=== PATIENT | female | born 1960 | race Native Hawaiian/Other Pacific Islander ===

== ENCOUNTER 2018-10-06 13:15 | Inpatient (IN) | payer OTHER ==
[2018-10-06] MEDS ORDERED: SODIUM CHLORIDE 0.9% 1,000 ML IV STA (13:45)
[2018-10-06 14:02] LABS: Amorphous Sediment,Urine Occasional /hpf; Appearance,Urine Cloudy (Clear); Bacteria,Urine Occasional /hpf; Bilirubin,Urine 3+ (Negative); Blood,Urine Trace (Negative); Color,Urine Dark Yellow; Glucose,Urine (UA) Negative (Negative); Granular Casts,Urine 2 /lpf (0); Ketones,Urine Negative (Negative); Leukocyte Esterase,Urine Large (Negative); Mucus,Urine Occasional /hpf; Nitrite,Urine Negative (Negative); PH, Urine 5.5 (5.0-8.0); Protein,Urine Negative (Negative); RBC,Urine 1 /hpf (0-5); Specific Gravity,Urine 1.009 (1.001-1.035); Squamous Epithelial Cell,Urine 3 /hpf (0-4); Urobilinogen,Urine <2.0 mg/dL (<2.0)
[2018-10-06 14:09] LABS: Basophils # (A) 0.1 k/uL (0-0.2); Basophils % (A) 1 %; Eosinophils # (A) 0.1 k/uL (0-0.7); Eosinophils % (A) 1 %; HCT 47.3 % (34.0-46.0); HGB 15.3 gm/dL (11.4-16.0); Lymphocytes % (A) 22 %; MCH 29.4 pg (25.0-35.0); MCHC 32.3 g/dL (31.0-37.0); MCV 90.9 fL (80.0-100.0); Mean Platelet Volume 10.4; Monocytes # (A) 0.7 k/uL (0-1.0); Monocytes % (A) 8 %; Neutrophils # (A) 5.8 k/uL (1.3-7.7); Neutrophils % (A) 65 %; Platelet Count 275 k/uL (150-450); RDW 15.8 % (11.5-15.5)
[2018-10-06 14:22] LABS: Target Cells Present
[2018-10-06 14:23] LABS: Poikilocytosis (M) Present
--- NOTE | 2018-10-06 15:16 | CT ---
EXAMINATION TYPE: CT abdomen pelvis w con DATE OF EXAM: 10/06/2018 COMPARISON: None INDICATION: No complaints of pain. Yellowing of eyes and skin DLP: 1360.6 mGycm, Automated exposure control for dose reduction was used. CONTRAST: 100 mL of Isovue 370. Study performed without Oral Contrast TECHNIQUE: Axial images were obtained from above the diaphragm to the pubic rami in the axial plane a t 5 mm thick sections. Reconstructed images are reviewed on the computer in the coronal plane. FINDINGS: Limited CT sections are obtained the lung bases. The lung bases are clear. CT ABDOMEN: Liver: Normal Spleen: Normal Pancreas: Normal Adrenal glands: The adrenal glands are normal. Gallbladder: Some thickening of the urinary gallbladder wall may be present. Clinical correlation is recommended. This may be partially intrahepatic. Consider follow-up with ultrasound to evaluate for c holecystitis. Kidneys: No masses are evident. No hydronephrosis is present. No cysts are present. Delayed images were obtained through the kidneys, which remain unremarkable. Aorta: Vascular calcification is within the aorta. Inferior vena cava: Normal. CT PELVIS: Loops of bowel within the abdomen and pelvis are normal. No oral contrast was utilized. Note is m julianne of an anterior abdominal wall hernia in the periumbilical region with an opening of 0.8 cm. Appendix: Normal as visualized. Urinary bladder: Decompressed with some limited evaluation. Genitourinary structures: Uterus contains an IUD. Adnexal regions are unremarkable. Uterine fibroid e xtending from the anterior fundus should be suspected. Osseous structures: No suspicious lytic or sclerotic lesions. L4-L5 facet changes are present. IMPRESSIONS: 1. Uterine fibroid. 2. Some gallbladder wall thickening and some suspicion of a partially intrahepatic gallbladder. Corre late for acute cholecystitis. Additional evaluation with ultrasound is recommended. 3 small anterior abdominal wall hernia containing mesenteric fat.
[2018-10-06 15:22] LABS: ALT 68 U/L (9-52); AST 83 U/L (14-36); Albumin 3.6 g/dL (3.5-5.0); Alkaline Phosphatase 379 U/L (38-126); Anion Gap 11 mmol/L; Blood Urea Nitrogen 13 mg/dL (7-17); Calcium 9.1 mg/dL (8.4-10.2); Carbon Dioxide 22 mmol/L (22-30); Chloride 104 mmol/L (98-107); Glucose 113 mg/dL (74-99); Magnesium 2.3 mg/dL (1.6-2.3); Potassium 4.5 mmol/L (3.5-5.1); Sodium 137 mmol/L (137-145); Total Protein 7.5 g/dL (6.3-8.2)
[2018-10-06 15:23] LABS: Total Bilirubin 18.6 mg/dL (0.2-1.3)
--- NOTE | 2018-10-06 16:14 | ED ---
General Adult HPI - General Chief complaint: Recheck/Abnormal Lab/Rx Stated complaint: Needs testing on eyes Time Seen by Provider: 10/06/18 13:27 Source: patient, RN notes reviewed, old records reviewed Mode of arrival: ambulatory Limitations: no limitations - History of Present Illness Initial comments: 57-year-old female patient past medical history of hypertension presents to ED with progressive jaundice since Tuesday. Patient reports that she was seen by her primary care provider 2 days ago who recommended present to ER for further evaluation. Patient is not having any other symptoms besides jaundice. Patient denies any pain, headache, nausea vomiting diarrhea. Patient denies any abdominal pain. Patient is currently being treated by her primary care physician with Bactrim for urinary tract infection. Patient denies any current dysuria. Systemic: Pt denies fatigue, myalgia, fever/chills, rash. Pt denies weakness, night sweats, weight loss. Neuro: Pt denies headache, visual disturbances, syncope or pre-syncope. HEENT: Pt denies ocular discharge or irritation, otalgia, rhinorrhea, pharyngitis or notable lymphadenopathy. Cardiopulmonary: Pt denies chest pain, SOB, heart palpitations, dyspnea on exertion. Abdominal/GI: Pt denies abdominal pain, n/v/d. : Pt denies dysuria, burning w/ urination, frequency/urgency. Denies new onset urinary or bowel incontinence. MSK: Pt denies myalgia, loss of strength or function in extremities. Neuro: Pt denies new onset weakness, paresthesias. - Related Data Home Medications Medication Instructions Recorded Confirmed Atenolol 25 mg PO DAILY 10/06/18 10/06/18 Sulfamethox-Tmp 800-160Mg [Bactrim 1 tab PO DAILY 10/06/18 10/06/18 DS 800-160 mg] Allergies Allergy/AdvReac Type Severity Reaction Status Date / Time No Known Allergies Allergy Verified 10/06/18 14:29 Review of Systems ROS Statement: Those systems with pertinent positive or pertinent negative responses have been documented in the HPI. ROS Other: All systems not noted in ROS Statement are negative. Past Medical History Past Medical History: Hypertension History of Any Multi-Drug Resistant Organisms: None Reported Past Surgical History: No Surgical Hx Reported Past Psychological History: Anxiety Smoking Status: Never smoker Past Alcohol Use History: None Reported Past Drug Use History: None Reported General Exam - General Exam Comments Initial Comments: Constitutional: NAD, AOX3, Pt has pleasant affect. HEENT: NC/AT, trachea midline, neck supple, no lymphadenopathy. Posterior phar ynx non erythematous, without exudates. External ears appear normal, without discharge. Mucous membranes moist. Eyes PERRLA, EOM intact. There is icterus. No pallor noted. Cardiopulmonary: RRR, no murmurs, rubs or gallops, no JVD noted. Lungs CTAB in anterior and posterior rose. No peripheral edema. Abdominal exam: Abdomen soft and non-distended. Abdomen non-tender to palpation in all 4 quadrants. Westbrook sign negative. Bowel sounds active in LLQ. No hepatosplenomegaly. No ecchymosis Neuro: CN II-XII grossly intact. No nuchal rigidity. MSK: No posterior calf tenderness bilaterally, homans sign negative bilaterally. Posterior tibialis and radial pulse +2 bilaterally. Sensation intact in upper and lower extremities. Full active ROM in upper and lower extremities, 5/5 stregnth. Derm: Diffuse jaundice noted. Limitations: no limitations Course Vital Signs 10/06/18 13:24 Temperature 97.7 F Pulse Rate 101 H Respiratory 20 Rate Blood Pressure 163/94 O2 Sat by Pulse 99 Oximetry Medical Decision Making - Medical Decision Making 57-year-old female patient past medical history of hypertension presents to ED with progressive jaundice since Tuesday. Patient reports that she was seen by her primary care provider 2 days ago who recommended present to ER for further evaluation. Patient is not having any other symptoms besides jaundice. Patient denies any pain, headache, nausea vomiting diarrhea. Patient denies any abdominal pain. Patient is currently being treated by her primary care physician with Bactrim for urinary tract infection. Patient denies any current dysuria. Patient will signs stable, afebrile. Physical exam displayed scleral pallor, jaundice. Abdomen nontender. Large investigations revealed nonpresent CBC. CMP revealed bilirubin of 18.6. UA revealed UTI. Patient is currently being treated with Bactrim for urinary tract infection. CT abdomen and pelvis displayed uterine fibroid. Some gallbladder wall thickening, some suspicion for partial intrahepatic gallbladder. Ultrasound displayed cholelithiasis with nonspecific gallbladder wall thickening. Repeat Exam patient nontender right upper quadrant. Patient to be admitted to Dr. Toney with GI and surgery consult. Acute hepatitis panel pending, bilirubin differentials pending. Case discussed with Dr. Easton. Antibiotics added for coverage of possible cholangitis. GI and surgery consulted. Case discussed with Dr. Toney by Dr. Easton. - Lab Data Result diagrams: 10/06/18 13:40 10/06/18 14:55 Lab Results 10/06/18 10/06/18 10/06/18 Range/Units 13:40 13:40 13:40 WBC 9.0 (3.8-10.6) k/uL RBC 5.20 (3.80-5.40) m/uL Hgb 15.3 (11.4-16.0) gm/dL Hct 47.3 H (34.0-46.0) % MCV 90.9 (80.0-100.0) fL MCH 29.4 (25.0-35.0) pg MCHC 32.3 (31.0-37.0) g/dL RDW 15.8 H (11.5-15.5) % Plt Count 275 (150-450) k/uL Neutrophils % 65 % Lymphocytes % 22 % Monocytes % 8 % Eosinophils % 1 % Basophils % 1 % Neutrophils # 5.8 (1.3-7.7) k/uL Lymphocytes # 2.0 (1.0-4.8) k/uL Monocytes # 0.7 (0-1.0) k/uL Eosinophils # 0.1 (0-0.7) k/uL Basophils # 0.1 (0-0.2) k/uL Manual Slide Review Performed Poikilocytosis (manual Present Target Cells Present Sodium (137-145) mmol/L Potassium (3.5-5.1) mmol/L Chloride (98-107) mmol/L Carbon Dioxide (22-30) mmol/L Anion Gap mmol/L BUN (7-17) mg/dL Creatinine (0.52-1.04) mg/dL Est GFR (CKD-EPI)AfAm (>60 ml/min/1.73 sqM) Est GFR (CKD-EPI)NonAf (>60 ml/min/1.73 sqM) Glucose (74-99) mg/dL Plasma Lactic Acid Jignesh 1.4 (0.7-2.0) mmol/L Calcium (8.4-10.2) mg/dL Magnesium (1.6-2.3) mg/dL Total Bilirubin (0.2-1.3) mg/dL AST (14-36) U/L ALT (9-52) U/L Alkaline Phosphatase (38-126) U/L Total Protein (6.3-8.2) g/dL Albumin (3.5-5.0) g/dL Urine Color Dark Yellow Urine Appearance Cloudy H (Clear) Urine pH 5.5 (5.0-8.0) Ur Specific [place] 1.009 (1.001-1.035) Urine Protein Negative (Negative) Urine Glucose (UA) Negative (Negative) Urine Ketones Negative (Negative) Urine Blood Trace H (Negative) Urine Nitrite Negative (Negative) Urine Bilirubin 3+ H (Negative) Urine Urobilinogen <2.0 (<2.0) mg/dL Ur Leukocyte Esterase Large H (Negative) Urine RBC 1 (0-5) /hpf Urine WBC 53 H (0-5) /hpf Urine WBC Clumps Few H (None) /hpf Ur Squamous Epith Cells 3 (0-4) /hpf Amorphous Sediment Occasional H (None) /hpf Urine Bacteria Occasional H (None) /hpf Granular Casts 2 (0) /lpf Urine Mucus Occasional H (None) /hpf 10/06/18 Range/Units 14:55 WBC (3.8-10.6) k/uL RBC (3.80-5.40) m/uL Hgb (11.4-16.0) gm/dL Hct (34.0-46.0) % MCV (80.0-100.0) fL MCH (25.0-35.0) pg MCHC (31.0-37.0) g/dL RDW (11.5-15.5) % Plt Count (150-450) k/uL Neutrophils % % Lymphocytes % % Monocytes % % Eosinophils % % Basophils % % Neutrophils # (1.3-7.7) k/uL Lymphocytes # (1.0-4.8) k/uL Monocytes # (0-1.0) k/uL Eosinophils # (0-0.7) k/uL Basophils # (0-0.2) k/uL Manual Slide Review Poikilocytosis (manual Target Cells Sodium 137 (137-145) mmol/L Potassium 4.5 (3.5-5.1) mmol/L Chloride 104 (98-107) mmol/L Carbon Dioxide 22 (22-30) mmol/L Anion Gap 11 mmol/L BUN 13 (7-17) mg/dL Creatinine 0.78 (0.52-1.04) mg/dL Est GFR (CKD-EPI)AfAm >90 (>60 ml/min/1.73 sqM) Est GFR (CKD-EPI)NonAf 85 (>60 ml/min/1.73 sqM) Glucose 113 H (74-99) mg/dL Plasma Lactic Acid Jignesh (0.7-2.0) mmol/L Calcium 9.1 (8.4-10.2) mg/dL Magnesium 2.3 (1.6-2.3) mg/dL Total Bilirubin 18.6 H* (0.2-1.3) mg/dL AST 83 H (14-36) U/L ALT 68 H (9-52) U/L Alkaline Phosphatase 379 H (38-126) U/L Total Protein 7.5 (6.3-8.2) g/dL Albumin 3.6 (3.5-5.0) g/dL Urine Color Urine Appearance (Clear) Urine pH (5.0-8.0) Ur Specific [place] (1.001-1.035) Urine Protein (Negative) Urine Glucose (UA) (Negative) Urine Ketones (Negative) Urine Blood (Negative) Urine Nitrite (Negative) Urine Bilirubin (Negative) Urine Urobilinogen (<2.0) mg/dL Ur Leukocyte Esterase (Negative) Urine RBC (0-5) /hpf Urine WBC (0-5) /hpf Urine WBC Clumps (None) /hpf Ur Squamous Epith Cells (0-4) /hpf Amorphous Sediment (None) /hpf Urine Bacteria (None) /hpf Granular Casts (0) /lpf Urine Mucus (None) /hpf Disposition Clinical Impression: Hyperbilirubinemia Disposition: ADMITTED IP TO THIS HOSP Condition: Serious Is patient prescribed a controlled substance at d/c from ED?: No
--- NOTE | 2018-10-06 16:54 | US ---
EXAMINATION TYPE: US gallbladder DATE OF EXAM: 10/06/2018 COMPARISON: CT 10/06/2018 CLINICAL HISTORY: Pain. Abdominal pain per order. *Limited study due to gas. Patient not NPO. EXAM MEASUREMENTS: Liver Length: 12.7 cm Gallbladder Wall: 0.5 cm CBD: 0.5 cm Right Kidney: 11.5 x 5.7 x 4.9 cm Pancreas: Tail obscured by gas. Liver: Heterogeneously echogenic, but no focal findings. Gallbladder: Gallbladder is nondistended. Multiple shadowing mobile echogenic areas seen within the g allbladder. There was difficulty in visualizing the wall of the gallbladder, but what could be seen a ppeared to be thickened at 5 mm, with top normal being 3 mm thickness. There was no sonographic Nacho y's sign. CBD: wnl . Right Kidney: No hydronephrosis or mass. IMPRESSION: CHOLELITHIASIS, WITH NONSPECIFIC GALLBLADDER WALL THICKENING.
[2018-10-06] MEDS ORDERED: NALOXONE 0.4 MG/ML 1 ML VIAL IV PRN (17:00)
[2018-10-06] MEDS ORDERED: AMPICILLIN-SULBACTAM 3 GM in SODIUM CHLORIDE 0.9% 100 ML IVPB STA (17:53)
[2018-10-06] MEDS: PANTOPRAZOLE 40 MG/10 ML VIAL IVP SCH (20:12)
[2018-10-06] MEDS ORDERED: SULFAMETHOX-TMP 800-160MG 1 EACH TAB PO SCH (21:00)
[2018-10-06 21:13] LABS: Prothrombin Time 10.9 sec (9.0-12.0)
[2018-10-06 21:39] VITALS: BMI 38.3
[2018-10-06] MEDS: HEPARIN SODIUM,PORCINE 5,000 UNIT/ML 1 ML VIAL SQ SCH (21:39)
[2018-10-06] MEDS: AMPICILLIN-SULBACTAM 3 GM in SODIUM CHLORIDE 0.9% 100 ML IVPB SCH (23:53)
[2018-10-07] MEDS: AMPICILLIN-SULBACTAM 3 GM in SODIUM CHLORIDE 0.9% 100 ML IVPB SCH ×5 (05:17→23:14)
--- NOTE | 2018-10-07 07:50 | HP ---
HISTORY AND PHYSICAL DATE OF SERVICE: 10/06/2018 CHIEF COMPLAINT: Jaundice. HISTORY OF PRESENT ILLNESS: This 57-year-old woman with a past history of hypertension, history of anxiety being followed by Dr. Sheridan in the outpatient setting, is noted to have increasing jaundice over the past several days. The patient presented to the ER and the patient admitted for evaluation and treatment. The bilirubin was found to be significantly elevated at 18.6 and AST was 83 and ALT was 68, alkaline phosphatase was 379, and UA showed evidence of some UTI. Otherwise, the patient also had a CT scan of the abdomen pelvis which was reviewed personally by me, showed uterine fibroid and some gallbladder wall thickening and some suspicion of partially intrahepatic gallbladder and possible acute cholecystitis. A gallbladder ultrasound was also done which showed cholelithiasis and nonspecific gallbladder wall thickening. There is no history of fever, rigors. No history of headache, loss of coconsciousness. No history of chest pain or palpation at this time. PAST MEDICAL HISTORY: History of hypertension, history of anxiety. MEDICATIONS ARE: 1. Atenolol 25 mg. 2. Bactrim DS 1 p.o. daily. ALLERGIES: None. FAMILY HISTORY: No history of heart disease or strokes in the family. SOCIAL HISTORY: Patient is a business management associate. No history of smoking. No history of alcohol. No history of recent travel or contact with infected person. REVIEW OF SYSTEMS: ENT: No history of diminished hearing or vision. CARDIOVASCULAR: No angina or palpitations. RESPIRATORY: No cough, no hemoptysis. GI: No nausea, vomiting, or diarrhea. : No dysuria. NERVOUS: No numbness or weakness. ALLERGY/IMMUNOLOGY: No asthma or hayfever. MUSCULOSKELETAL: As mentioned earlier. HEMATOLOGY/ONCOLOGY: Negative. ENDOCRINE: No history of diabetes or hypothyroidism. SKIN: Negative. PSYCHIATRY: As mentioned earlier. PHYSICAL EXAMINATION: Alert and oriented times three. Pulse 101, blood pressure 162/94, respirations 20, temperature 97.7, pulse ox 99% on room air. HEENT: Conjunctivae Normal. Oral mucosa dry. NECK: No jugular venous distention. No lymph node enlargement. RESPIRATORY: Breath sounds diminished at the bases. No rhonchi, no crackles. ABDOMEN: Soft, no tenderness. No mass palpable. EXTREMITIES: No edema, no swelling. NERVOUS: Higher functions as mentioned earlier. Moves all four limbs. No focal deficits. SKIN: No rash. JOINTS: No acute deformity or arthropathy. LABS: WBC 9, hemoglobin 15.2, sodium 130, potassium 4.5. LFTs are noted as above. Glucose 113. UA noted. ASSESSMENT: 1. Acute hepatitis of undetermined etiology. Possibly drug induced, possibly infective. 2. Increased AST, ALT. 3. Increased alkaline phosphatase. 4. Possible cholelithiasis with cholecystitis. 5. Possible urinary tract infection. 6. Hypertension. 7. History of anxiety. RECOMMENDATION AND DISCUSSION: In this 57-year-old woman who presented with multiple complex medical issues, we will monitor the patient closely, continue the current management, continue symptomatic treatment. I recommend broad-spectrum IV antibiotics. Otherwise, I would also recommend surgical evaluation and gastroenterology evaluation. Repeat labs. We will monitor the pattern of the LFTs, acute hepatitis panel. Overall prognosis extremely guarded because of multiple complex medical issues. Further recommendations to follow. MMODL / IJN: [id number] /
[2018-10-07] MEDS: PANTOPRAZOLE 40 MG/10 ML VIAL IVP SCH (08:30)
[2018-10-07] MEDS: HEPARIN SODIUM,PORCINE 5,000 UNIT/ML 1 ML VIAL SQ SCH ×2 (08:32→19:40)
[2018-10-07] MEDS ORDERED: ATENOLOL 25 MG TAB PO SCH (09:00)
--- NOTE | 2018-10-07 09:59 | P.GSCN ---
History of Present Illness Consult date: 10/07/18 Reason for Consult: Cholelithiasis, hyperbilirubinemia History of present illness: This a 57-year-old female who presented to the emergency room with complaints of abdominal pain and jaundice. Patient was found have evidence of cholelithiasis. Her bilirubin is 18. Patient states that she had was recently treated for urinary tract infection with Bactrim. She denies a significant abdominal pain today. Past Medical History Past Medical History: Hypertension History of Any Multi-Drug Resistant Organisms: None Reported Past Surgical History: No Surgical Hx Reported Past Psychological History: Anxiety Smoking Status: Never smoker Past Alcohol Use History: None Reported Past Drug Use History: None Reported Medications and Allergies Home Medications Medication Instructions Recorded Confirmed Type Atenolol 25 mg PO DAILY 10/06/18 10/06/18 History Sulfamethox-Tmp 800-160Mg [Bactrim 1 tab PO DAILY 10/06/18 10/06/18 History DS 800-160 mg] Allergies Allergy/AdvReac Type Severity Reaction Status Date / Time No Known Allergies Allergy Verified 10/06/18 14:29 Surgical - Exam Vital Signs Temp Pulse Resp BP Pulse Ox 97.7 F 101 H 20 163/94 99 10/06/18 13:24 10/06/18 13:24 10/06/18 13:24 10/06/18 13:24 10/06/18 13:24 - General well developed, well nourished, no distress - Eyes PERRL - ENT normal pinna - Neck no masses - Respiratory normal expansion - Cardiovascular Rhythm: regular - Abdomen Abdomen: soft, non tender Results - Labs 10/06/18 13:40 10/06/18 14:55 Abnormal Lab Results - Last 24 Hours (Table) 10/06/18 10/06/18 10/06/18 Range/Units 13:40 13:40 14:55 Hct 47.3 H (34.0-46.0) % RDW 15.8 H (11.5-15.5) % Glucose 113 H (74-99) mg/dL Total Bilirubin 18.6 H* (0.2-1.3) mg/dL AST 83 H (14-36) U/L ALT 68 H (9-52) U/L Alkaline Phosphatase 379 H (38-126) U/L Urine Appearance Cloudy H (Clear) Urine Blood Trace H (Negative) Urine Bilirubin 3+ H (Negative) Ur Leukocyte Esterase Large H (Negative) Urine WBC 53 H (0-5) /hpf Urine WBC Clumps Few H (None) /hpf Amorphous Sediment Occasional H (None) /hpf Urine Bacteria Occasional H (None) /hpf Urine Mucus Occasional H (None) /hpf Microbiology - Last 24 Hours (Table) 10/06/18 13:40 Urine Culture - Preliminary Urine,Voided Diabetes panel 10/06/18 Range/Units 14:55 Sodium 137 (137-145) mmol/L Potassium 4.5 (3.5-5.1) mmol/L Chloride 104 (98-107) mmol/L Carbon Dioxide 22 (22-30) mmol/L BUN 13 (7-17) mg/dL Creatinine 0.78 (0.52-1.04) mg/dL Glucose 113 H (74-99) mg/dL Calcium 9.1 (8.4-10.2) mg/dL AST 83 H (14-36) U/L ALT 68 H (9-52) U/L Alkaline Phosphatase 379 H (38-126) U/L Total Protein 7.5 (6.3-8.2) g/dL Albumin 3.6 (3.5-5.0) g/dL Calcium panel 10/06/18 Range/Units 14:55 Calcium 9.1 (8.4-10.2) mg/dL Albumin 3.6 (3.5-5.0) g/dL Pituitary panel 10/06/18 Range/Units 14:55 Sodium 137 (137-145) mmol/L Potassium 4.5 (3.5-5.1) mmol/L Chloride 104 (98-107) mmol/L Carbon Dioxide 22 (22-30) mmol/L BUN 13 (7-17) mg/dL Creatinine 0.78 (0.52-1.04) mg/dL Glucose 113 H (74-99) mg/dL Calcium 9.1 (8.4-10.2) mg/dL Adrenal panel 10/06/18 Range/Units 14:55 Sodium 137 (137-145) mmol/L Potassium 4.5 (3.5-5.1) mmol/L Chloride 104 (98-107) mmol/L Carbon Dioxide 22 (22-30) mmol/L BUN 13 (7-17) mg/dL Creatinine 0.78 (0.52-1.04) mg/dL Glucose 113 H (74-99) mg/dL Calcium 9.1 (8.4-10.2) mg/dL Total Bilirubin 18.6 H* (0.2-1.3) mg/dL AST 83 H (14-36) U/L ALT 68 H (9-52) U/L Alkaline Phosphatase 379 H (38-126) U/L Total Protein 7.5 (6.3-8.2) g/dL Albumin 3.6 (3.5-5.0) g/dL - Imaging US - abdomen: report reviewed (Cholelithiasis) Assessment and Plan Plan: Cholelithiasis, thickened gallbladder wall. Patient has evidence of chronic cholecystis. Her liver enzymes will be tracked. When they improve she will undergo laparoscopic cholecystectomy.
[2018-10-07 12:21] LABS: Bilirubin, Conjugated 13.3 mg/dL (0.0-0.3); Bilirubin,Unconjugated 2.3 mg/dL (0.0-1.1)
[2018-10-07 12:25] LABS: ALT 72 U/L (9-52); AST 94 U/L (14-36); Albumin 3.9 g/dL (3.5-5.0); Alkaline Phosphatase 387 U/L (38-126); Anion Gap 11 mmol/L; Blood Urea Nitrogen 13 mg/dL (7-17); Calcium 9.6 mg/dL (8.4-10.2); Carbon Dioxide 25 mmol/L (22-30); Chloride 104 mmol/L (98-107); Glucose 121 mg/dL (74-99); Sodium 140 mmol/L (137-145); Total Protein 8.4 g/dL (6.3-8.2)
[2018-10-07 12:26] LABS: Bilirubin, Delta 4.5 mg/dL (0.0-0.2)
[2018-10-07 12:31] LABS: Prothrombin Time 10.8 sec (9.0-12.0)
[2018-10-07 12:42] LABS: Anisocytosis Slight; Basophils % (A) 1 %; Eosinophils # (A) 0.1 k/uL (0-0.7); Eosinophils % (A) 1 %; HCT 44.8 % (34.0-46.0); HGB 13.8 gm/dL (11.4-16.0); Lymphocytes # (A) 2.3 k/uL (1.0-4.8); Lymphocytes % (A) 30 %; MCH 27.7 pg (25.0-35.0); MCHC 30.9 g/dL (31.0-37.0); MCV 89.7 fL (80.0-100.0); Mean Platelet Volume 11.9; Monocytes # (A) 0.5 k/uL (0-1.0); Monocytes % (A) 7 %; Neutrophils # (A) 4.8 k/uL (1.3-7.7); Neutrophils % (A) 60 %; Platelet Count 240 k/uL (150-450); RBC 4.99 m/uL (3.80-5.40); RDW 16.6 % (11.5-15.5); WBC 7.9 k/uL (3.8-10.6)
[2018-10-07 12:46] LABS: Potassium 5.2 mmol/L (3.5-5.1); Total Bilirubin 20.1 mg/dL (0.2-1.3)
[2018-10-07 12:47] LABS: Total Bilirubin 20.1 mg/dL (0.2-1.3)
[2018-10-07 14:59] LABS: Target Cells Present
[2018-10-07 19:09] LABS: Hepatitis A Antibody IgM Non-Reactive (Non-Reactive); Hepatitis B Core IgM Non-Reactive (Non-Reactive)
[2018-10-07] MEDS: ATENOLOL 25 MG TAB PO SCH (19:40)
--- NOTE | 2018-10-07 23:29 | PN ---
PROGRESS NOTE DATE OF SERVICE: 10/07/2018 This 57-year-old woman who was admitted with acute hepatitis of unclear etiology is being closely monitored at this time. Multiple consultants as well as Gastroenterology and surgery are following the patient closely at this time. The patient bilirubin is 20.1 at this time and liver enzymes are not elevated. Most is conjugated bilirubin. The hepatitis panel and influenza negative at this time. The patient being closely monitored. PAST MEDICAL HISTORY: Reviewed. REVIEW OF SYSTEMS: CARDIOVASCULAR: No angina or palpitations. RESPIRATION: As mentioned earlier. GI mentioned earlier. no dysuria. CENTRAL NERVOUS SYSTEM: No numbness, weakness. CURRENT MEDICATIONS ARE: Reviewed and include: 1. Unasyn 3 g IV q.6h. 2. Tenormin. 3. Heparin. 4. Protonix. PHYSICAL EXAM: Patient is alert and oriented times three. Pulse is 78, blood pressure 132/74, respiratory 20, temperature 98 degrees, pulse ox 97% on room air. HEENT: Conjunctivae icteric. Oral mucosa moist. Cardiovascular: S1, S2. Respiratory: Breath sounds diminished in the bases. Scattered rhonchi. No crackles. ABDOMEN: Soft, nontender. No mass palpable. Legs are no edema, no swelling. CENTRAL NERVOUS SYSTEM: No focal deficits. LABS: WBC 7.5, hemoglobin is 13.8, sodium 140, potassium 4.2. LFTs noted as above. ASSESSMENT: 1. Acute hepatitis of undetermined etiology. Possibly drug induced, possibly infected. 2. Increased AST ALT. 3. Increased alkaline phosphatase. 4. Possible cholelithiasis with cholecystitis. 5. Possible urinary tract infection. 6. History of hypertension. 7. History of anxiety. RECOMMENDATIONS AND DISCUSSION: Continue current management, continue to monitor, cultures are negative so far. Continue the rest of the medications. Closely follow. Gastroenterology input appreciated. Otherwise, prognosis guarded because of multiple complex medical issues. Further recommendations to follow. MMODL / IJN: [id number] /
[2018-10-08] MEDS: AMPICILLIN-SULBACTAM 3 GM in SODIUM CHLORIDE 0.9% 100 ML IVPB SCH ×4 (05:33→23:28)
[2018-10-08] MEDS: HEPARIN SODIUM,PORCINE 5,000 UNIT/ML 1 ML VIAL SQ SCH ×2 (08:40→21:24)
[2018-10-08] MEDS: PANTOPRAZOLE 40 MG/10 ML VIAL IVP SCH (08:53)
--- NOTE | 2018-10-08 11:05 | P.PN ---
Progress Note - Text Progress Note Date: 10/08/18 The patient's resting comfortably in her bed. She has no quite the pain. Her bilirubin is quite elevated still. On exam her lesser stable.. elevated liver function tests and bili are. patient will be observed. we'll plan for outpatient cholecystectomy once her lfts have returned to normal.
[2018-10-08 11:57] LABS: ALT 77 U/L (9-52); AST 95 U/L (14-36); Albumin 3.9 g/dL (3.5-5.0); Alkaline Phosphatase 381 U/L (38-126); Anion Gap 11 mmol/L; Blood Urea Nitrogen 12 mg/dL (7-17); Calcium 9.3 mg/dL (8.4-10.2); Carbon Dioxide 24 mmol/L (22-30); Chloride 103 mmol/L (98-107); Glucose 143 mg/dL (74-99); Potassium 4.7 mmol/L (3.5-5.1); Sodium 138 mmol/L (137-145); Total Protein 8.1 g/dL (6.3-8.2)
[2018-10-08 12:08] LABS: Anisocytosis Slight; Basophils # (A) 0.1 k/uL (0-0.2); Basophils % (A) 1 %; Eosinophils # (A) 0.1 k/uL (0-0.7); Eosinophils % (A) 1 %; HCT 44.2 % (34.0-46.0); HGB 14.2 gm/dL (11.4-16.0); Lymphocytes # (A) 1.5 k/uL (1.0-4.8); Lymphocytes % (A) 20 %; MCH 28.5 pg (25.0-35.0); Mean Platelet Volume 12.1; Monocytes # (A) 0.6 k/uL (0-1.0); Monocytes % (A) 7 %; Neutrophils # (A) 5.3 k/uL (1.3-7.7); Neutrophils % (A) 69 %; Platelet Count 228 k/uL (150-450); RBC 4.97 m/uL (3.80-5.40); RDW 17.2 % (11.5-15.5); WBC 7.7 k/uL (3.8-10.6)
[2018-10-08 12:18] LABS: INR 1.1 (<1.2)
[2018-10-08 12:19] LABS: Prothrombin Time 11.3 sec (9.0-12.0)
--- NOTE | 2018-10-08 14:28 | P.CONS ---
History of Present Illness - Reason for Consult Consult date: 10/07/18 Hyperbilirubinemia - History of Present Illness 57-year-old female patient past medical history of hypertension presented to Emergency depqrtment with progressive jaundice since Tuesday. Patient reports that she was seen by her primary care provider 2 days prior who recommended present to ER for further evaluation. Patient is not having any other symptoms besides jaundice. Patient denies any pain, headache, nausea vomiting diarrhea. Patient denies any abdominal pain. Patient is currently being treated by her primary care physician with Bactrim for urinary tract infection. Patient denies any current dysuria.CT and US showed cholelithiasis and some thickening of GB wall. Review of Systems CONSTITUTIONAL: Denies any fevers, chills, weight change or fatigue. CARDIOVASCULAR: Denies any chest pain, palpitations high or low blood pressures RESPIRATORY: Denies any shortness of breath, hemoptysis or cough. GENITOURINARY: No dysuria or hematuria. MUSCULOSKELETAL: No weakness reported. SKIN: Denies any new rashes or lesions, jaundice or pallor. PSYCHIATRIC: Denies any depression or anxiety. NEUROLOGY: Denies headache, denies any new focal deficits. EARS/NOSE/THROAT: No recent hearing change, congestion, nasal discharge or sore throat. EYES: No pain in eyes, discharge or change in vision. GASTROINTESTINAL: As per HPI. Past Medical History Past Medical History: Hypertension History of Any Multi-Drug Resistant Organisms: None Reported Past Surgical History: No Surgical Hx Reported Past Psychological History: Anxiety Smoking Status: Never smoker Past Alcohol Use History: None Reported Past Drug Use History: None Reported Medications and Allergies Home Medications Medication Instructions Recorded Confirmed Type Atenolol 25 mg PO DAILY 10/06/18 10/06/18 History Sulfamethox-Tmp 800-160Mg [Bactrim 1 tab PO DAILY 10/06/18 10/06/18 History DS 800-160 mg] Allergies Allergy/AdvReac Type Severity Reaction Status Date / Time No Known Allergies Allergy Verified 10/06/18 14:29 Physical Exam Vitals: Vital Signs Temp Pulse Pulse Resp BP BP Pulse Ox 10/07/18 08:37 133/63 10/07/18 05:30 98.3 F 65 18 119/74 98 10/06/18 21:30 97.7 F 82 18 108/72 99 10/06/18 20:24 97.3 F L 78 15 146/75 99 10/06/18 13:24 97.7 F 101 H 20 163/94 99 Intake and Output 10/06/18 10/07/18 10/07/18 22:59 06:59 14:59 Intake Total 1350 200 Balance 1350 200 Intake: Amount of Fluid Infused ( 1100 ml) Oral 250 200 Other: # Voids 1 1 On physical examination, patient appears very pleasant, stated age in no apparent distress. HEAD: Normocephalic, atraumatic. EYES: Scleral icterus. No conjunctival injection. MOUTH: No lesions, tongue midline. NECK: Trachea midline, no gross abnormalities. CHEST: Clear to auscultation with no wheezing or rhonchi appreciated. HEART: Regular, no abnormal solids, murmurs, gallops or friction rubs. ABDOMEN: Soft. Bowel sounds are positive. No organomegaly. No guarding or rigidity. EXTREMITIES: No pedal edema. SKIN: No rashes. NEUROLOGIC: Alert and oriented. No focal deficits. Results CBC & Chem 7: 10/08/18 10:47 10/08/18 10:47 Labs: Abnormal Lab Results - Last 24 Hours (Table) 10/06/18 10/06/18 10/06/18 Range/Units 13:40 13:40 14:55 Hct 47.3 H (34.0-46.0) % RDW 15.8 H (11.5-15.5) % Glucose 113 H (74-99) mg/dL Total Bilirubin 18.6 H* (0.2-1.3) mg/dL AST 83 H (14-36) U/L ALT 68 H (9-52) U/L Alkaline Phosphatase 379 H (38-126) U/L Urine Appearance Cloudy H (Clear) Urine Blood Trace H (Negative) Urine Bilirubin 3+ H (Negative) Ur Leukocyte Esterase Large H (Negative) Urine WBC 53 H (0-5) /hpf Urine WBC Clumps Few H (None) /hpf Amorphous Sediment Occasional H (None) /hpf Urine Bacteria Occasional H (None) /hpf Urine Mucus Occasional H (None) /hpf Microbiology - Last 24 Hours (Table) 10/06/18 13:40 Urine Culture - Preliminary Urine,Voided Assessment and Plan Assessment: Hyperbilirubinemia likely related to medication (bactrim) side effect. Doubt cholelithiasis is contributing to her picture at this time. Plan: Will observe off bactrim. Discuss with you and general surgery.
[2018-10-08 15:04] LABS: Target Cells Present
--- NOTE | 2018-10-08 18:39 | PN ---
PROGRESS NOTE DATE OF SERVICE: 10/08/2018 This 57-year-old woman who was admitted after acute hepatitis of undetermined etiology has been closely monitored. The patient has possible drug-induced hepatitis; elevated significantly high at 20 at this time. The AST and ALT are also high, but rather stable as compared to yesterday. Acute hepatitis panel is negative. No chest pain. No palpitations. No fever. On exam, alert and oriented x3. Pulse 62, blood pressure is 130/82, respirations 16, temp 97 degrees, pulse ox 100 percent. HEENT: Conjunctivae icteric. Oral mucosa moist. Neck is no jugular venous distention. No carotid bruit. No lymph node enlargement. CARDIOVASCULAR: S1, S2. RESPIRATORY: Breath sounds diminished in the bases. Scattered rhonchi and crackles. ABDOMEN: Soft, nontender. No mass palpable. LEGS: No edema, no swelling. NERVOUS SYSTEM: No focal deficits. LABS: WBC 6.7, hemoglobin 14.2, sodium 130, potassium 4.7. ASSESSMENT: 1. Acute hepatitis of undetermined etiology, possibly drug induced, possibly infective. 2. Increased AST, ALT. 3. Increased alkaline phosphatase. 4. Possible cholelithiasis with cholecystitis. 5. Urinary tract infection possibly. 6. History of hypertension. 7. History of anxiety disorder. RECOMMENDATIONS AND DISCUSSION: I recommend to continue the current management and symptomatic treatment. The patient is refusing antibiotics and several medications. Please refer to staff notes for further information. LFTs are still elevated, but currently stable. We will continue to monitor. Increase ambulation. Continue the diet. Further recommendation to follow. Influenza negative. MMODL / IJN: [id number] /
[2018-10-08] MEDS: ATENOLOL 25 MG TAB PO SCH (21:24)
[2018-10-09] MEDS: AMPICILLIN-SULBACTAM 3 GM in SODIUM CHLORIDE 0.9% 100 ML IVPB SCH ×2 (05:44→08:31)
[2018-10-09] MEDS: HEPARIN SODIUM,PORCINE 5,000 UNIT/ML 1 ML VIAL SQ SCH (08:31)
[2018-10-09] MEDS: PANTOPRAZOLE 40 MG/10 ML VIAL IVP SCH (08:37)
[2018-10-09 09:15] LABS: ALT 76 U/L (9-52); AST 91 U/L (14-36); Alkaline Phosphatase 391 U/L (38-126); Anion Gap 10 mmol/L; Blood Urea Nitrogen 12 mg/dL (7-17); Calcium 9.8 mg/dL (8.4-10.2); Carbon Dioxide 30 mmol/L (22-30); Chloride 100 mmol/L (98-107); Glucose 110 mg/dL (74-99); Potassium 4.8 mmol/L (3.5-5.1); Sodium 140 mmol/L (137-145); Total Protein 8.1 g/dL (6.3-8.2)
[2018-10-09 09:42] LABS: HCT 46.7 % (34.0-46.0); HGB 14.6 gm/dL (11.4-16.0); Hypochromasia Slight; MCH 28.9 pg (25.0-35.0); MCHC 31.3 g/dL (31.0-37.0); MCV 92.2 fL (80.0-100.0); Mean Platelet Volume 10.1; Platelet Count 233 k/uL (150-450); RBC 5.07 m/uL (3.80-5.40); RDW 15.4 % (11.5-15.5); WBC 8.9 k/uL (3.8-10.6)
[2018-10-09 09:46] LABS: INR 1.1 (<1.2)
[2018-10-09 09:47] LABS: Prothrombin Time 11.3 sec (9.0-12.0)
[2018-10-09 09:50] LABS: Total Bilirubin 19.9 mg/dL (0.2-1.3)
[2018-10-09 10:05] LABS: Metamyelocytes # (M) 0.09 k/uL (0); Metamyelocytes % 1 %; Nucleated Red Blood Cells 0 /100 WBC (0-0)
[2018-10-09 10:06] LABS: Eosinophils # (M) 0.18 k/uL (0-0.7); Neutrophils # (M) 6.41 k/uL (1.3-7.7); Neutrophils % (M) 72 %; Target Cells Present; Total Cells Counted 200
[2018-10-09 10:07] LABS: Anisocytosis (M) Present; Poikilocytosis (M) Present
--- NOTE | 2018-10-09 11:31 | P.PN ---
Subjective Progress Note Date: 10/09/18 HISTORY OF PRESENT ILLNESS: Patient seen and examined the bedside. Patient denies abdominal pain. Denies nausea or vomiting. Tolerating diet. She has been up ambulating in the hallway. Bilirubin 19.9. AST 91. ALT 76. PHYSICAL EXAM: VITAL SIGNS: Reviewed. GENERAL: Well-developed in no acute distress. HEENT: Bilateral sclera icterus. Extraocular movements grossly intact. Moist buccal mucosa. Head is atraumatic, normocephalic. ABDOMEN: Soft. Nondistended. Nontender. NEUROLOGIC: Alert and oriented. Cranial nerves II through XII grossly intact. ASSESSMENT: 1. Hyperbilirubinemia 2. Chronic cholecystitis PLAN: LFTs and bilirubin remain elevated. From a surgical standpoint, no inpatient intervention. Patient may follow up with Dr. Gonzalez outpatient for evaluation of laparoscopic cholecystectomy. We will sign off. Please re-consult if n eeded. Nurse practitioner note has been reviewed by physician. Signing provider agrees with the documented findings, assessment, and plan of care. Objective - Vital Signs Vital signs: Vital Signs Temp 97.7 F 10/09/18 05:14 Pulse 90 10/09/18 05:14 Resp 18 10/09/18 05:14 BP 125/72 10/09/18 05:14 Pulse Ox 96 10/09/18 05:14 Intake & Output 10/08/18 10/09/18 10/09/18 18:59 06:59 18:59 Intake Total 900 100 Balance 900 100 Intake: Intake, IV Titration 100 Amount Ampicillin-Sulbactam 3 gm 100 In Sodium Chloride 0.9% 100 ml @ 200 mls/hr IVPB Q6HR LOBO Rx#:[id number] Oral 900 Other: # Voids 2 1 - Labs CBC & Chem 7: 10/09/18 08:03 10/09/18 08:03 Labs: Abnormal Lab Results - Last 24 Hours (Table) 10/08/18 10/08/18 10/09/18 Range/Units 10:47 10:47 08:03 Hct 46.7 H (34.0-46.0) % RDW 17.2 H (11.5-15.5) % Metamyelocytes # (Man) 0.09 H (0) k/uL Glucose 143 H (74-99) mg/dL Total Bilirubin 20.0 H* (0.2-1.3) mg/dL AST 95 H (14-36) U/L ALT 77 H (9-52) U/L Alkaline Phosphatase 381 H (38-126) U/L 10/09/18 Range/Units 08:03 Hct (34.0-46.0) % RDW (11.5-15.5) % Metamyelocytes # (Man) (0) k/uL Glucose 110 H (74-99) mg/dL Total Bilirubin 19.9 H* (0.2-1.3) mg/dL AST 91 H (14-36) U/L ALT 76 H (9-52) U/L Alkaline Phosphatase 391 H (38-126) U/L
[2018-10-09 14:36] VITALS: BP 131/78; PULSE 77; RESP 16; TEMP 98.3
--- NOTE | 2018-10-10 06:47 | DS ---
DISCHARGE SUMMARY DATE OF SERVICE: 10/09/2018 FINAL DIAGNOSES: 1. Acute hepatitis of undetermined etiology, possibly drug induced possibly infective. 2. Increased AST ALT. 3. Increase alkaline phosphatase. 4. Possible cholelithiasis with cholecystitis, improved. 5. Urinary tract infection, possibly. 6. History of hypertension. 7. History of anxiety disorder. DISCHARGE DISPOSITION: The patient will be discharged in stable condition with guarded prognosis. Total time taken 35 minutes. HISTORY OF PRESENT ILLNESS: This 57-year-old woman with a past medical history of multiple medical problems, admitted with features of acute hepatitis and severe jaundice. Patient treated symptomatically. Patient also started on antibiotics, but the patient refused antibiotics and Surgery and Gastroenterology saw the patient. Recommended outpatient followup regarding the above-mentioned medical issues. On exam, vitals are stable. HEENT: Conjunctivae icteric. NECK: ntd CARDIOVASCULAR: S1, S2, muffled. RESPIRATION: Breath sounds diminished at the bases. No rhonchi, no crackles. ABDOMEN: Soft, nontender. NERVOUS SYSTEM: No focal deficits. The bilirubin was 20.1 on admission. Currently, it is 19.9. AST, ALT is also rather stable. I discussed the case at length with Dr. Galindo and acute hepatitis panel is negative. Influenza is negative. Recommend close follow up in the outpatient setting. The PT, INR is also normal at 1.1. PT, INR is also recommended to be checked in the outpatient setting. DISCHARGE ADVICE: 1. Diet is cardiac diet. 2. Activity limited until followup. 3. Follow up with Dr. Sheridan in 2 to 3 days. 4. Follow up with Dr. Gonzalez as advised. 5. Follow up with Gastroenterology as recommended. Medications are: 1. Atenolol 25 mg p.o. daily. 2. Protonix 40 mg p.o. daily. CBC, CMP at least twice weekly and PT, INR in one week and once is stabilized, the CMP may be monitored every weekly to normalcy or significant improvement. Once again, the patient will be discharged in a stable condition with guarded prognosis. MMODL / GWENN: [id number] / MTDD
[2018-10-10] MEDS ORDERED: PANTOPRAZOLE 40 MG TABLET PO SCH (07:30)
== END 2018-10-09 14:45 | disposition home or self-care (01) | DRG 442 ==
LOC: EC 13:15 → 4MS4W 18:09
PROVIDERS: ADMIT Hospitalist; ATTEND Hospitalist
DX: B17.9 Acute viral hepatitis, unspecified (principal); K80.10 Calculus of gallbladder with chronic cholecystitis without obstruction; N39.0 Urinary tract infection, site not specified; T37.0X5A Adverse effect of sulfonamides, initial encounter; I10 Essential (primary) hypertension; D25.9 Leiomyoma of uterus, unspecified; Z79.899 Other long term (current) drug therapy; Z87.440 Personal history of urinary (tract) infections; F41.9 Anxiety disorder, unspecified
CPT/HCPCS: 36415; 74177; 76705; 80053; 80074; 81001; 82140; 82248; 83605; 83735; 85025; 85610; 87086; 87502; 96361; 96374; 96375; 99285

== ENCOUNTER → 2018-10-16 | Outpatient (CLI) | payer OTHER ==
[2018-10-16 07:31] LABS: INR 1.5 (<1.2); Prothrombin Time 14.8 sec (9.0-12.0)
== END ==
LOC: LABWHC1 06:32
PROVIDERS: ATTEND Hospitalist
DX: K75.9 Inflammatory liver disease, unspecified (principal)
CPT/HCPCS: 85610